=== PATIENT | male | born 1995 | race Caucasian/White ===

== ENCOUNTER 2023-02-26 19:45 | Emergency (ER) | payer BC, SELFPAY ==
--- NOTE | 2023-02-26 19:48 | XRR_ITS ---
PROCEDURE INFORMATION: Exam: XR Right Knee Exam date and time: 02/26/2023 8:03 PM Age: 27 years old Clinical indication: Injury or trauma; Other: Playing basketball; Sprain or strain; Patella or knee; Right TECHNIQUE: Imaging protocol: Radiologic exam of the right knee. Views: 3 views. COMPARISON: No relevant prior studies available. FINDINGS: Bones/joints: Normal. No fracture or dislocation. No congenital anomaly. Soft tissues: Normal. XR/XR knee RT 3V* [id number] IMPRESSION: The findings are normal.
[2023-02-26 19:55] VITALS: BP 130/84; PULSE 126; RESP 14; TEMP 36.6; O2SAT 96; BMI 32.5
[2023-02-26 20:17] VITALS: BP 130/84; PULSE 126; RESP 14; TEMP 36.6; O2SAT 96
--- NOTE | 2023-02-26 20:18 | ED_ITS ---
HPI - Extremity Problem General: Chief complaint: Extremity Injury, Lower Stated complaint: Rt Knee Injury Time Seen by Provider: 02/26/23 19:48 Source: patient Mode of arrival: ambulatory Limitations: no limitations History of Present Illness: 27-year-old male states he was playing b asketball this evening states that while playing he felt his right knee buckle felt a pop he states that since then he has not been able to bear weight has had pain in that right knee anytime he tries to bear weight he feels like it is unstable. Rates his pain a 4 out of 10 it is improved with rest denies any other injuries Associated symptoms: Deny chest pain, fever(s) or rash Review of Systems Const: Denies: fever(s), chills, body aches or change in appetite ENMT: Denies: throat pain or dental pain Card: Denies: chest pain Resp: Denies: dyspnea GI: Denies: abdominal pain, nausea, vomiting or diarrhea Musc: Reports: extremity pain; Denies: neck pain or back pain Skin/Breast: Denies: rash Neuro: Denies: headache(s) Physical Exam Const: COMMON NORMALS: no acute distress, patient oriented x3 and healthy appearing HENMT: COMMON NORMALS: normocephalic and atraumatic HEAD & SCALP: normocephalic and atraumatic Neck/C-Spine: COMMON NORMALS: full ROM and supple Chest: COMMONS NORMALS: normal inspection of the chest Resp: COMMON NORMALS: normal respiratory effort Cardio: COMMON NORMALS: regular rate, regular rhythm and No murmurs present (Cardio) RATE: regular rate RHYTHM: regular rhythm Extremity: COMMON NORMALS: full ROM NARRATIVE EXTREMITY EXAM: Swelling and tenderness noted to right knee no obvious deformity Neuro: COMMON NORMALS: patient oriented x3, moves all extremities and no focal motor deficits Psych: COMMON NORMALS: mental status grossly normal, Normal thought process present and cooperative THOUGHT PROCESS: Normal thought process present Skin: COMMON NORMALS: no rashes or lesions noted and no wounds GENERAL SKIN EXAM: no rashes or lesions noted Course Vital Signs: Vital signs: Vital Signs Temperature 98 F 02/26/23 19:55 Pulse Rate 126 H 02/26/23 19:55 Respiratory Rate 14 02/26/23 19:55 Blood Pressure 130/84 02/26/23 19:55 Pulse Oximetry 96 02/26/23 19:55 Oxygen Delivery Me thod Room Air 02/26/23 19:55 MDM - Extremity (Nontraumatic) Medical Decision Making Patient presents with a right knee sprain x-ray shows no acute fracture. Patient placed in a knee immobilizer along with crutches patient stable for discharge he is to follow-up with orthopedics. XR interpretation done by ED provider, pending radiology final review ED provider radiology interpretation(s): X-ray knee no acute abnormality Discharge Plan Discharge Patient Disposition: Home Clinical Impression: Right knee sprain Qualifiers: Encounter type: initial encounter Involved ligament of knee: unspecified ligament Qualified Code(s): S83.91XA - Sprain of unspecified site of right knee, initial encounter Condition: Stable Prescriptions: New hydrocodone-acetaminophen 5-325 mg tablet 1 tab PO Q6H PRN (Reason: pain) Qty: 14 0RF Discharge Orders: Discharge ED (Routine); Ordered 02/26/23 Ordered By: Valeria Vera Referrals: Valentino Andres DO [Physician] - 1-3 days Discharge Diet: Advance as tolerated Discharge Activity: Increase activity as tolerated Patient Instructions: Knee Sprain (ED), Knee Immobilizer (ED), Opioid Safety Coding Level of Care Code ED [employer] for Mady Medina
--- NOTE | 2023-03-01 23:42 | DCPLANNER ---
Message sent to Ortho for follow up appointment knee sprain
== END 2023-02-26 20:28 | disposition home or self-care (01) ==
PROVIDERS: Emergency Provider Emergency Medicine
DX: S83.91XA Sprain of unspecified site of right knee, initial encounter (principal); X58.XXXA Exposure to other specified factors, initial encounter; Y93.67 Activity, basketball
CPT/HCPCS: 29530; 73562; 99283; E0114